=== PATIENT | male | born 1990 | race Caucasian/White ===

== ENCOUNTER → 2018-02-02 | Outpatient (CLI) | payer OTHER ==
[2018-02-02 14:11] LABS: ALBUMIN 4.1 gm/dl (3.4-5.0); ALT/SGPT 25 U/L (12-78); AST/SGOT 17 U/L (15-37); BLOOD UREA NITROGEN 16 mg/dl (7-18); CALCIUM 9.1 mg/dl (8.5-10.1); CARBON DIOXIDE 27 mmol/L (21-32); CREATININE 1.05 mg/dl (0.60-1.40); GLUCOSE 95 mg/dl (70-99); POTASSIUM 3.9 mmol/L (3.5-5.1); SODIUM 137 mmol/L (136-145)
[2018-02-02 14:14] LABS: ALKALINE PHOSPHATASE 80 U/L (45-117); CHOLESTEROL 158 mg/dl (0-200); LDL CHOLESTEROL CALCULATED 97 mg/dl; TOTAL PROTEIN 7.7 gm/dl (6.4-8.2)
== END | disposition home or self-care (01) ==
LOC: C.LABBC 12:05
PROVIDERS: ATTEND Nurse Practitioner Adult Health
DX: R07.89 Other chest pain (principal)